=== PATIENT | female | born 1995 | race Caucasian/White ===

== ENCOUNTER 2020-09-30 19:18 | Emergency (ER) | payer SELFPAY ==
[~2020-09-30] VITALS: Ht 157.5 cm; Wt 61.2 kg
[2020-10-01 02:07] VITALS: BP 113/80
== END 2020-10-01 02:10 | disposition home or self-care (01) ==
LOC: ER 19:18
DX: S46.911A Strain of unspecified muscle, fascia and tendon at shoulder and upper arm level, right arm, initial encounter (principal); S16.1XXA Strain of muscle, fascia and tendon at neck level, initial encounter; V43.62XA Car passenger injured in collision with other type car in traffic accident, initial encounter; Y93.89 Activity, other specified; Y92.410 Unspecified street and highway as the place of occurrence of the external cause; Y99.8 Other external cause status
CPT/HCPCS: 70450; 72125; 73030; 81025